=== PATIENT | male | born 1955 | race Two or more races ===

== ENCOUNTER 2025-08-17 15:39 | Emergency (ER) | payer OTHER, SELFPAY ==
[2025-08-17 15:53] VITALS: BP 169/89; PULSE 95; RESP 20; TEMP 36.7; O2SAT 96; BMI 25.8
[2025-08-17 16:06] VITALS: BP 151/86; PULSE 93; RESP 18; TEMP 36.7; O2SAT 96
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
[2025-08-17 17:46] VITALS: BP 143/84; PULSE 89; RESP 16; TEMP 36.7; O2SAT 96
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
[2025-08-17 19:10] VITALS: BP 138/77; PULSE 81; RESP 16; TEMP 36.6; O2SAT 99
== END 2025-08-17 19:11 | disposition home or self-care (01) ==
PROVIDERS: Emergency Provider Emergency Medicine
DX: T20.00XA Burn of unspecified degree of head, face, and neck, unspecified site, initial encounter (principal); T22.00XA Burn of unspecified degree of shoulder and upper limb, except wrist and hand, unspecified site, initial encounter; T59.811A Toxic effect of smoke, accidental (unintentional), initial encounter
CPT/HCPCS: 99281